=== PATIENT | male | born 1995 | race Caucasian/White ===

== ENCOUNTER → 2017-08-30 14:08 | Outpatient (CLI) | payer OTHER, SELFPAY ==
[2017-08-30 17:46] LABS: Chlamydia Trachomatis by PCR Negative (Negative); Probe Check PASS; Sample Adequacy Control PASS; Specimen Processing Control PASS
== END ==
PROVIDERS: Family Provider Family Medicine; PCP Family Medicine; Visit Provider Family Medicine
DX: R30.0 Dysuria (principal)
CPT/HCPCS: 87491

== ENCOUNTER → 2018-05-27 14:38 | Outpatient (CLI) | payer OTHER, SELFPAY ==
--- NOTE | 2018-05-27 14:48 | RAD_ITS ---
STUDY: X-RAY - ABDOMEN/PELVIS REASON FOR EXAM: Male, 22 years old. Left flank pain. History of kidney stones. TECHNIQUE: Two AP supine views of the abdomen and pelvis. COMPARISON: Comparison is made with prior study dated April 23, 2017. FINDINGS: There is a moderate amount of colonic fecal material. The previously seen 3.4 mm calcification overlying the inferior aspect of the right sacrum is not seen at this time. Stable right pelvic phlebolith. Normal soft tissue structures. Normal visualized osseous structures. RAD/Abdomen Single View IMPRESSION: The previously seen 3.4 mm calcification overlying the inferior aspect of the right sacrum is not seen at this time. Electronically Signed: Bebo Sue MD at 13:52 EST Tel [phone], Service support ,
== END ==
PROVIDERS: Family Provider Family Medicine; PCP Family Medicine; Referring Provider Nurse Practitioner Adult Health; Visit Provider Nurse Practitioner Adult Health
DX: N20.0 Calculus of kidney (principal)
CPT/HCPCS: 74018

== ENCOUNTER → 2019-08-17 | Outpatient (CLI) | payer OTHER, SELFPAY ==
[2019-08-17 17:50] LABS: Anion Gap 5 (5-15); BUN 8 mg/dL (7-18); BUN/Creat Ratio 8.7 RATIO (10-20); Calcium,Total 9.7 mg/dL (8.5-10.1); Chloride 106 mmol/L (98-107); Cholesterol 160 mg/dL (200); Creatinine, Serum 0.92 mg/dL (0.70-1.30); EST Glomerular Filtration Rate 107 mL/min (>60); Est Glom Filt Rate - Afr Amer 130 mL/min (>60); Glucose 86 mg/dL (74-106); High Density Lipoprotein 45 mg/dL; Sodium Level 141 mmol/L (136-145); Thyroid Stim Hormone (TSH) 3.78 uIU/mL (0.358-3.74); Triglycerides 69 mg/dL; Very Low Density Lipoprotein 14 mg/dL (5-40)
== END | disposition home or self-care (01) ==
LOC: MFPLAB 15:56
PROVIDERS: PCP Family Medicine; Referring Provider Family Medicine; Visit Provider Nurse Practitioner Family
DX: R53.83 Other fatigue (principal); Z13.220 Encounter for screening for lipoid disorders
CPT/HCPCS: 36415; 80048; 80061; 84443

== ENCOUNTER → 2020-04-13 16:00 | Outpatient (CLI) | payer OTHER, SELFPAY ==
--- NOTE | 2020-04-13 16:00 | LES_PTH ---
PATIENT: ARACELY ERAZO LOC: [facility] U#:[id number] AGE/SX: 29/M ROOM: RE04/13/[address]: Dr. Edel Piper MD : 1995 BED: DIS: SPEC #: [id number] RECD: 04/13/20 18:05 STATUS: MACARENA JUHI #: [id number] GALLO: 04/13/20 16:[address]: Edel Piper DEPT: SURGICAL PATHOLOGY RECD BY: Kamilah Garrett Tissues: Skin of head, NOS Procedures: Surgery Specimen Level IV HEADER OPERATION: Excision PRE-OP DIAGNOSIS: Suspicious skin lesion TISSUE SUBMITTED: Left head mole MICROSCOPIC DIAGNOSIS Left head mole, shave biopsy: Compound nevus extending up to the deep margin of the specimen. SJ:arti 04/15/20 MICROSCOPIC DESCRIPTION Slides are reviewed. GROSS DESCRIPTION Received in fixative is one container labeled with the patient's name and designated left head mole. The specimen consists of a round piece of teran-white to light brown skin measuring 0.7 cm in diameter and 0.1 cm in thickness. The specimen is inked and submitted entirely in one cassette. It will be bisected at the time of embedding. / SJ:arti 04/14/20 TC:1 CPT: 02924
== END ==
PROVIDERS: PCP Family Medicine; Visit Provider Family Medicine
DX: D22.4 Melanocytic nevi of scalp and neck (principal)
CPT/HCPCS: 88305